=== PATIENT | male | born 1965 | race Two or more races ===

== ENCOUNTER → 2019-05-09 | Day surgery (SDC) | payer OTHER ==
[~2019-05-09] VITALS: Ht 165.1 cm; Wt 98.4 kg
[2019-05-09 06:17] VITALS: BP 128/80
[2019-05-09 13:22] VITALS: BP 125/87
== END | disposition home or self-care (01) ==
LOC: DS 06:02 → GI 07:30 → OR 07:30
DX: K83.3 Fistula of bile duct (principal); K80.50 Calculus of bile duct without cholangitis or cholecystitis without obstruction; E66.3 Overweight; J45.909 Unspecified asthma, uncomplicated; K21.9 Gastro-esophageal reflux disease without esophagitis; G40.909 Epilepsy, unspecified, not intractable, without status epilepticus; E11.22 Type 2 diabetes mellitus with diabetic chronic kidney disease; I12.9 Hypertensive chronic kidney disease with stage 1 through stage 4 chronic kidney disease, or unspecified chronic kidney disease; N18.9 Chronic kidney disease, unspecified; D64.9 Anemia, unspecified; F03.90 Unspecified dementia, unspecified severity, without behavioral disturbance, psychotic disturbance, mood disturbance, and anxiety; Z68.36 Body mass index [BMI] 36.0-36.9, adult; Z96.89 Presence of other specified functional implants
CPT/HCPCS: 43260; C1769; J1170; J1610; J2250; J2405; J3490; J7120; Q9967